=== PATIENT | female | born 1990 | race Two or more races ===

== ENCOUNTER 2024-08-30 09:39 | Day surgery (SDC) | payer OTHER ==
[2024-08-23 09:32] VITALS: BP 116/80
[2024-08-23 10:25] LABS: HEMATOCRIT 38.4 % (36.0-45.00); HEMOGLOBIN 12.9 g/dL (12.0-15.00); MEAN CELL VOLUME 88.9 fL (80.00-100.00); MEAN CORPUSCULAR HEMOGLOBIN 29.9 pg (27.00-32.0); MEAN CORPUSCULAR HGB CONC 33.6 g/dl (32.0-36.0); PLATELET COUNT 238 K/uL (150-450); RED BLOOD COUNT 4.33 M/uL (4.00-6.00); RED CELL DISTRIBUTION WIDTH 13.1 % (11.5-14.5)
[2024-08-23 10:41] LABS: URINE APPEARANCE Clear; URINE BILIRRUBIN Negative (NEGATIVE); URINE BLOOD Negative; URINE COLOR Yellow; URINE GLUCOSE Negative (NEGATIVE); URINE KETONE Negative (NEGATIVE); URINE LEUKOCYTE Negative; URINE NITRATE Negative; URINE PROTEIN Negative (NEGATIVE); URINE UROBILINOGEN 0.2 E.U./dl
[2024-08-23 10:43] LABS: URINE BACTERIA 34.2 uL (0.0-1933); URINE WBC 3.7 uL (0.0-23.2)
[2024-08-23 11:05] LABS: ALBUMIN 3.8 gm/dL (3.4-5.0); ALKALINE PHOSPHATASE 61 U/L (50-136); ALT/SGPT 16 U/L (12-78); ANION GAP 8 (10.0-20.0); AST/SGOT 16 U/L (15-37); BLOOD UREA NITROGEN 10 mg/dL (7-18); BUN CREA RATIO 16 (7.0-25.0); CALCIUM 8.9 mg/dL (8.5-10.1); CARBON DIOXIDE 29 mEq/L (21-32); CHLORIDE 108 mmol/L (98-107); CREATININE SERUM 0.61 mg/dL (0.55-1.02); GFR 110.98; GLOBULINA 3.4 G/DL (2.4-3.5); GLUCOSE FASTING 128 mg/dL (65-100); OSMOLALITY SERUM 282 MOSM/KG (275-295); POTASSIUM 4.17 mEq/L (3.5-5.1); SODIUM 141 mmol/L (136-145); TOTAL PROTEIN 7.2 gm/dL (6.4-8.2)
[2024-08-23 11:06] LABS: HCG QUANTITATIVE < 1 mUI/mL (1-3)
[2024-08-23 11:08] LABS: PARTIAL THROMBOPLASTIN TIME 30.5 SECONDS (22.0-34.0); PROTHROMBIN TIME 10.9 SECONDS (9.0-11.5)
[~2024-08-30] VITALS: Ht 157.5 cm; Wt 77.1 kg
[~2024-08-30 09:39] MED LIST: HUMALOG100 UNIT/1; METOCLOPRAMIDE H5 MG PO; ROSUVASTATIN CA10 MG PO; TOPROL XL25 M1 PO
[2024-08-30] MEDS ORDERED: CEFOXITIN SODIUM 2,000 MG VIAL IV ONE (21:00)
[2024-08-30] MEDS ORDERED: POVIDONE-IODINE 118 ML BOTT TOP ONE (21:00)
[2024-08-30] MEDS ORDERED: MORPHINE SULFATE 4 MG/ML VIAL IV PRN (21:15)
[2024-08-30] MEDS ORDERED: PROMETHAZINE HCL 50 MG/ML AMPUL IM ONE (21:15)
== END 2024-08-31 03:20 | disposition home or self-care (01) ==
LOC: U 09:39 → CIR.AMB 09:39
PROVIDERS: ATTEND Obstetrics & Gynecology Obstetrics
DX: N93.8 Other specified abnormal uterine and vaginal bleeding (principal)